=== PATIENT | male | born 1960 ===

== ENCOUNTER 2025-02-16 08:45 | Inpatient (IN) | payer OTHER ==
[~2025-02-16] VITALS: Ht 175.3 cm; Wt 105.7 kg
[2025-02-16 08:55] VITALS: BP 162/93
[2025-02-16 09:22] LABS: BASO % 0.5 % (0.1-1.2); EOS # 0.28 (0.04-0.54); EOS % 2.7 % (0.7-7.0); LYMPH # 1.47 (1.18-3.74); LYMPH % 14.0 % (19.3-53.1); MEAN PLATELET VOLUME 10.30 fl (9.4-12.4); MONO # 0.76 (0.24-0.82); MONO % 7.2 % (4.7-12.5); NEUT # 7.89 (1.56-6.13); NEUT % 75.2 % (34.0-71.1); RED CELL DISTRIBUTION WIDTH 13.2 % (11.6-14.4)
[2025-02-16 09:40] LABS: URINE APPEARANCE Clear; URINE BILIRRUBIN Negative (NEGATIVE); URINE BLOOD Negative; URINE COLOR Yellow; URINE GLUCOSE Negative (NEGATIVE); URINE KETONE Trace (NEGATIVE); URINE LEUKOCYTE Negative; URINE NITRATE Negative; URINE PROTEIN Negative (NEGATIVE); URINE UROBILINOGEN 1.0 E.U./dl
[2025-02-16 09:42] LABS: INR 1.02
[2025-02-16 09:43] LABS: BUN CREA RATIO 22.0 (7.0-25.0); CREATININE SERUM 1.08 mg/dL (0.70-1.30); GFR 68.41; GLUCOSE FASTING 119.0 mg/dL (65-100); OSMOLALITY SERUM 290.0 MOSM/KG (275-295)
[2025-02-16 09:43] LABS: URINE EPITHELIAL CELLS 1.8 uL (0.0-38.8); URINE WBC 3.2 uL (0.0-23.2)
[2025-02-16 10:03] LABS: URINE BACTERIA 2.4 uL (0.0-1933); URINE CAST 0.00 uL (0.0-1.40); URINE RBC 0.8 uL (0.0-20.8)
[2025-02-16] MEDS ORDERED: NIFEDIPINE20 MG (10:09)
[2025-02-16] MEDS ORDERED: AVAPRO300 MG PO (10:09)
[2025-02-16] MEDS ORDERED: CARVEDILOL25 MG (10:10)
[2025-02-16] MEDS ORDERED: LOW DOSE ASPIRI81 M1 PO (10:10)
[2025-02-16] MEDS ORDERED: DYRENIUM50 MG (10:10)
[2025-02-16] MEDS ORDERED: LIPITOR20 MG (10:11)
[2025-02-18] MEDS ORDERED: ENOXAPARIN SODIUM 40 MG/0.4 ML SYRINGE SUBCUTANEO ONE ×2 (09:59→12:45)
[2025-02-18] MEDS ORDERED: CEFAZOLIN SODIUM 1,000 MG VIAL ONE (09:59)
[2025-02-18] MEDS ORDERED: GENTAMICIN SULFATE 40 MG/ML VIAL ONE (09:59)
[2025-02-18] MEDS ORDERED: HEMOSTATIC MATRIX 1 KIT KIT TOP ONE ×2 (10:00→12:45)
[2025-02-18] MEDS ORDERED: SURGIFLO APPLICATOR 1 EACH APPL TOP ONE ×2 (10:01→12:45)
[2025-02-18] MEDS ORDERED: CEFAZOLIN SODIUM 1,000 MG VIAL IV ONE (12:45)
[2025-02-18] MEDS ORDERED: BUPIVACAINE HCL 30 ML VIAL IJ ONE (12:45)
[2025-02-18] MEDS ORDERED: SUGAMMADEX SODIUM 200 MG/2 ML VIAL IV ONE (15:00)
[2025-02-18] MEDS ORDERED: MORPHINE SULFATE 4 MG/ML CARTRIDGE IV PRN (15:45)
[2025-02-18] MEDS ORDERED: RINGERS SOLUTION,LACTATED 1,000 ML IV SCH (15:45)
[2025-02-18] MEDS ORDERED: OxyCODONE HCL 5 MG TABLET (ROXICODONE) PO PRN (15:45)
[2025-02-18] MEDS ORDERED: ONDANSETRON HCL 2 MG/ML VIAL IV PRN (15:45)
[2025-02-18] MEDS ORDERED: GABAPENTIN 300 MG CAPSULE PO SCH (17:00)
[2025-02-18 17:28] LABS: BASO % 0.2 % (0.1-1.2); EOS # 0.06 (0.04-0.54); EOS % 0.3 % (0.7-7.0); LYMPH # 0.95 (1.18-3.74); LYMPH % 5.3 % (19.3-53.1); MEAN PLATELET VOLUME 9.90 fl (9.4-12.4); MONO # 0.98 (0.24-0.82); MONO % 5.5 % (4.7-12.5); NEUT # 15.69 (1.56-6.13); NEUT % 88.3 % (34.0-71.1); RED CELL DISTRIBUTION WIDTH 13.1 % (11.6-14.4)
[2025-02-18 18:01] LABS: BUN CREA RATIO 23.0 (7.0-25.0); CREATININE SERUM 1.1 mg/dL (0.70-1.30); GFR 66.97; GLUCOSE FASTING 145.0 mg/dL (65-100); OSMOLALITY SERUM 288.0 MOSM/KG (275-295)
[2025-02-18 19:24] VITALS: BP 144/80; O2SAT 94
[2025-02-18] MEDS ORDERED: CEFAZOLIN SODIUM 1,000 MG VIAL IV SCH (21:00)
[2025-02-18] MEDS ORDERED: FAMOTIDINE/PF 20 MG/2 ML VIAL IV SCH (21:00)
[2025-02-18] MEDS ORDERED: DOCUSATE SODIUM 100MG CAP PO SCH (21:00)
[2025-02-19 00:49] VITALS: BP 141/79; O2SAT 97
[2025-02-19 06:45] LABS: BASO % 0.2 % (0.1-1.2); EOS # 0.01 (0.04-0.54); EOS % 0.1 % (0.7-7.0); LYMPH # 1.04 (1.18-3.74); LYMPH % 9.0 % (19.3-53.1); MEAN PLATELET VOLUME 10.70 fl (9.4-12.4); MONO # 1.38 (0.24-0.82); MONO % 11.9 % (4.7-12.5); NEUT # 9.13 (1.56-6.13); NEUT % 78.5 % (34.0-71.1); RED CELL DISTRIBUTION WIDTH 13.2 % (11.6-14.4)
[2025-02-19 07:25] LABS: BUN CREA RATIO 19.0 (7.0-25.0); CREATININE SERUM 0.9 mg/dL (0.70-1.30); GFR 84.43; GLUCOSE FASTING 115.0 mg/dL (65-100); OSMOLALITY SERUM 289.0 MOSM/KG (275-295)
[2025-02-19 08:00] VITALS: BP 159/91; O2SAT 97
[2025-02-19] MEDS ORDERED: CARVEDILOL 25 MG TABLET PO SCH (09:00)
[2025-02-19] MEDS ORDERED: IRBESARTAN 300 MG TABLET PO SCH (09:00)
[2025-02-19] MEDS ORDERED: ENOXAPARIN SODIUM 40 MG/0.4 ML SYRINGE SUBCUTANEO SCH (09:00)
[2025-02-19] MEDS ORDERED: NIFEDIPINE 30 MG TAB.SA.OSM PO SCH (09:00)
== END 2025-02-19 13:17 | disposition home or self-care (01) | DRG 708 ==
LOC: SURH 02-18 08:45 → O/R 02-18 09:00 → SURH 02-18 12:00 → SURG 02-18 16:22
PROVIDERS: ADMIT Urology; ATTEND Urology
PROC: 8E0W4CZ Robotic Assisted Procedure of Trunk Region, Percutaneous Endoscopic Approach (ICD-10-PCS; 2025-02-18)
PROC: 0VT04ZZ Resection of Prostate, Percutaneous Endoscopic Approach (ICD-10-PCS; principal; 2025-02-18 12:00)
DX: C61 Malignant neoplasm of prostate (principal)
CPT/HCPCS: 55866; S2900